=== PATIENT | female | born 1995 | race African-American/Black ===

== ENCOUNTER 2021-04-14 17:02 | Emergency (ER) | payer OTHER, SELFPAY ==
[2021-04-14 17:16] VITALS: BP 127/79; PULSE 96; RESP 16; TEMP 37.3; O2SAT 99
--- NOTE | 2021-04-14 17:56 | ED.GENADULT ---
HPI - General Adult General Chief complaint: Skin/Abscess/Foreign Body Stated complaint: itchy/burning head-toe Source: patient Mode of arrival: ambulatory Limitations: no limitations History of Present Illness HPI narrative: Patient is a 25-year-old -[place] female who presents to the [facility] via POV for evaluation of a skin problem that is at midnight today. She reports a creepy crawly feeling in her upper and lower extremities. She reports feeling itchy all over. Scratching resolves itching. Unable to identify aggravating factors. She states this initially began in December and was treated with prednisone. She states after few days of this medication her symptoms resolved. She denies history of major medical illnesses. She denies taking antihistamines, antiemetics, SNRIs, and SSRIs. Related Data Allergies Allergy/AdvReac Type Severity Reaction Status Date / Time Penicillins Allergy Rash Verified 04/14/21 17:25 Review of Systems Review of Systems: Denies recent/new changes in soaps, perfumes, lotions, detergents, and shampoos. Denies working with chemicals. Denies new or changes in medications/foods. Pertinent negatives fever, chills, sweats, change in appetite, malaise, poor p.o. intake, recent weight loss, change in appetite, myalgias, lymphadenopathy, LOC, dizziness, burning sensation, petechiae, blistering, erythema, swelling, streaking, warmth, lesions, easy bruising, lip/tongue/throat swelling, facial swelling, abdominal pain, nausea, vomiting, numbness, tingling, loss of sensation, cough, wheezing, chest pain, and heart palpitations/murmurs. PMFSH Comments I have reviewed and agree with the patient's past medical, surgical, social, and family hx as documented by the RN. There is no relevant family history pertinent to the presenting complaint. Exam Narrative: GENERAL: Well-appearing, well-nourished, and in no acute distress. HEAD: Normocephalic, atraumatic. No facial swelling appreciated. EYES: PERRLA and EOMI. No evidence of erythema, swelling, or drainage. ENT: Nares clear, no rhinorrhea or epistaxis.Mucous membranes moist and pink. Uvula is midline without erythema and swelling. No evidence of obstruction, petechial rash, cobblestoning, lesions, ulcers, erythema, swelling, exudates, peritonsillar abscess, tenting, or drooling. Breath odor and voice normal. NECK: Supple. No Lymphadenopathy or nuchal rigidity appreciated. CHEST: Bilateral lung kruger are clear to auscultation. No respiratory distress. No evidence of cough or pleuritic cp upon examination. HEART: Regular rate and rhythm. No murmur, gallop, or rub heard. EXTREMITIES: Normal range of motion. No edema. SKIN: Warm, dry. No evidence of cellulitis, abscess, streaking, induration, abrasions/lacerations, petechiae, hematoma, contusion, drainage, or bleeding. NEURO: No focal deficits. Alert and oriented x3. Course Vital Signs Vital signs: Vital Signs Temperature 99.2 F 04/14/21 17:16 Pulse Rate 96 04/14/21 17:16 Respiratory Rate 16 04/14/21 17:16 Blood Pressure 127/79 04/14/21 17:16 Pulse Oximetry 99 04/14/21 17:16 Temperature 99.2 F 04/14/21 17:16 Pulse Rate 96 04/14/21 17:16 Respiratory Rate 16 04/14/21 17:16 Blood Pressure 127/79 04/14/21 17:16 Pulse Oximetry 99 04/14/21 17:16 Due to an elevated blood pressure, I had a detailed discussion with the patient and/or guardian regarding the need for follow-up with their primary care provider within the next 3-4 days. Patient verbalized understanding and agreed. Medical Decision Making Differential Diagnosis Differential Diagnosis: Contact/allergic dermatitis, atopic dermatitis, psoriasis, cellulitis, tinea infection, parasite infection, shingles, restless leg syndrome, periodic limb movement disorder Medical Records Medical records reviewed: Yes I reviewed the external patient's medical records. Vital Signs Vital Signs: Vital Signs Temperature 99.2 F
== END 2021-04-14 17:58 | disposition home or self-care (01) ==
PROVIDERS: Emergency Provider Nurse Practitioner Family; PCP Internal Medicine
DX: G25.81 Restless legs syndrome (principal); L29.9 Pruritus, unspecified; J45.909 Unspecified asthma, uncomplicated
CPT/HCPCS: 99203; G0463